=== PATIENT | male | born 1965 | race Caucasian/White ===

== ENCOUNTER 2016-07-09 12:07 | Inpatient (IN) | payer MEDICAID, OTHER ==
[~2016-07-09] VITALS: Ht 185.4 cm; Wt 88.5 kg
--- NOTE | 2016-07-09 12:07 | NUR ---
Patient LAURAA at this time and taken to lobby via wheelchair.
[2016-07-09 12:24] VITALS: BP 159/95
--- NOTE | 2016-07-09 12:30 | NUR ---
Patient to bed 05.
--- NOTE | 2016-07-09 12:39 | NUR ---
Dr. Jovel evaluating patient at bedside.
[2016-07-09] MEDS ORDERED: NACL 0.9% 1,000 ML IV ONE (12:50)
[2016-07-09] MEDS ORDERED: LORazepam 2 MG/ML VIAL IVP ONE (12:50)
[2016-07-09] MEDS ORDERED: MULTIVITAMIN-12 10 ML, THIAMINE 100 MG, MAGNESIUM SULFATE 50% 2,000 MG, FOLIC ACID 5 MG... IV ONE (12:50)
--- NOTE | 2016-07-09 13:39 | NUR ---
PATIENT PRESENTS TO ED WITH DRINKING FOR 6 DAYS STRAIGHT WITH SHAKING, SOB, HX HTN, ALCOHOL ABUSE; DENIES N/V/D; SKIN IS PINK/WARM/DRY; AAOX4 WITH EVEN AND STEADY GAIT; LUNGS CLEAR BL; HR EVEN AND REGULAR; PT DENIES ANY FEVER, CP, SOB, OR COUGH AT THIS TIME; PATIENT STATES PAIN OF 0/10 AT THIS TIME; VSS; PATIENT POSITIONED FOR COMFORT; HOB ELEVATED; BEDRAILS UP X2; BED DOWN. ER MD MADE AWARE OF PT STATUS.
[2016-07-09] MEDS ORDERED: DOCUSATE SODIUM 100 MG GELCAP PO PRN (14:50)
[2016-07-09] MEDS ORDERED: ACETAMINOPHEN 325 MG TAB PO PRN (14:50)
[2016-07-09] MEDS ORDERED: MORPHINE SULFATE 2 MG/ML SYR IVP PRN (14:50)
[2016-07-09] MEDS ORDERED: ONDANSETRON 4 MG/2 ML VIAL IVP PRN (14:50)
--- NOTE | 2016-07-09 14:54 | NUR ---
REPORT GIVEN TO BETY RUEDA
[2016-07-09] MEDS ORDERED: THIAMINE 200 MG/2 ML VIAL IM SCH (15:00)
--- NOTE | 2016-07-09 15:03 | NUR ---
Patient will be admitted to care of DR MESSINA. Admited to TELE. Will go to room 124B. Belongings list completed. Report to BETY RUEDA.
[2016-07-09] MEDS: LORazepam 1 MG TAB PO SCH ×4 (15:14→20:47)
[2016-07-09] MEDS: LORazepam 2 MG/ML VIAL IVP PRN ×3 (15:16→23:36)
--- NOTE | 2016-07-09 15:30 | NUR ---
PT ADMITTED FROM ER. REPORT RECEIVED FROM BETY QUIROGA. PT AAOX4. BROUGHT IN BY MIGUEL, AMBULATED TO BED. IV TO LEFT HAND INTACT AND PATENT. DENIES SOB. DENIES PAIN. C/O ANXIETY, WILL MEDICATE ORDERED. PT STATES HE WAS DRINKING X6 DAYS. DENIES SMOKING. HX HTN, PATIENT STATED HE TOOK MEDICATION THIS MORNING. SKIN INTACT. NO EDEMA. STRONG BILATERAL UPPER AND LOWER EXTREMITY PULSES. ON ROOM AIR. ORIENTED PT TO HOSPITAL ENVIRONMENT. ORIENTED PT TO CALL LIGHT. SAFETY MEASURES ENSURED. WILL CONTINUE TO MONITOR.
[2016-07-09 15:48] VITALS: BP 162/91
--- NOTE | 2016-07-09 16:24 | NUR ---
PT SLEEPING, AWAKES TO MODERATE TOUCH. NO S/S OF ACUTE DISTRESS.
[2016-07-09] MEDS: NACL 0.9% 1,000 ML IV SCH (18:29)
[2016-07-09] MEDS ORDERED: LOPRESSOR25 MG PO (18:40)
--- NOTE | 2016-07-09 18:40 | NUR ---
PT SEEN BY DR. GOODRICH AT BEDSIDE.
--- NOTE | 2016-07-09 18:55 | NUR ---
PT C/O SHAKINESS, ANXIETY. MEDICATED ORDERED.
--- NOTE | 2016-07-09 19:08 | NUR ---
SBAR REPORT GIVEN TO BETY DYE AT PT BEDSIDE. NO S/S OF ACUTE DISTRESS.
--- NOTE | 2016-07-09 19:15 | NUR ---
RECEIVED REPORT FROM DAY NURSEMARYBETH. PATIENT RESTING IN BED. NO RESPIRATORY DISTRESS, SOB, OR DISCOMFORT. INITIAL ASSESSMENT AND BODY CHECK DONE. PATIENT IS AOX4, SKIN IS INTACT, IV ACCESS TO LEFT HAND 20G, PATENT. DISCUSSED PLAN OF CARE, MEDICATION REGIMENT, AND PAIN MANAGEMENT WITH PATIENT. PATIENT COMPLAINING OF SHAKING/AGITATION AT THIS TIME, WILL ADMINISTERED MEDS PER MD ORDER. PATIENT VERBALIZED UNDERSTANDING. PLACED PATIENT ON SAFETY/FALL PRECAUTIONS. CALL LIGHT LEFT WITHIN REACH, WILL CONTINUE TO MONITOR.
[2016-07-09 20:00] VITALS: BP 145/81
--- NOTE | 2016-07-09 22:12 | NUR ---
PATIENT IN BED, SLEEPING. NO RESPIRATORY DISTRESS, SOB, OR DISCOMFORT. CALL LIGHT LEFT WITHIN REACH, WILL CONTINUE TO MONITOR.
[2016-07-10] VITALS: BP 153/97
--- NOTE | 2016-07-10 00:52 | NUR ---
PATIENT ASLEEP. NO RESPIRATORY DISTRESS, SOB, OR DISCOMFORT. CALL LIGHT LEFT WITHIN REACH, WILL CONTINUE TO MONITOR.
[2016-07-10] MEDS: LORazepam 2 MG/ML VIAL IVP PRN ×7 (02:24→18:30)
[2016-07-10] MEDS: NACL 0.9% 1,000 ML IV SCH ×3 (02:32→17:34)
--- NOTE | 2016-07-10 03:06 | NUR ---
PATIENT SLEEPING. NO RESPIRATORY DISTRESS, SOB, OR DISCOMFORT. CALL LIGHT LEFT WITHIN REACH, WILL CONTINUE TO MONITOR.
[2016-07-10 04:00] VITALS: BP 154/91
[2016-07-10] MEDS: LORazepam 1 MG TAB PO SCH ×3 (04:18→20:31)
--- NOTE | 2016-07-10 06:40 | NUR ---
PATIENT COMPLAINING OF FEELING SHAKY/AGITATED; REQUESTING MEDICATION. WILL MEDICATE PER MD ORDER.
--- NOTE | 2016-07-10 07:20 | NUR ---
RECEIVED PATIENT REPORT. PATIENT AWAKE, ALERT AND ORIENTED. PATIENT REPORTS FEELING SHAKY AT THIS TIME. WILL MEDICATE. PATIENT ON ROOM AIR. IV LINE NOTED TO THE LEFT HAND WITH IVF INFUSING WELL. PATIENT ON TELE MONITORING. BED LOWERED WITH CALL LIGHT WITHIN REACH. WILL CONTINUE TO MONITOR
--- NOTE | 2016-07-10 07:22 | NUR ---
REPORT GIVEN TO DAY NURSEHARDIK. PATIENT RESTING IN BED, STABLE. NO RESPIRATORY DISTRESS, SOB, OR DISCOMFORT. ALL NEEDS ATTENDED TO DURING SHIFT, CALL LIGHT LEFT WITHIN REACH.
[2016-07-10 08:00] VITALS: BP 155/91
[2016-07-10] MEDS: FOLIC ACID 1 MG TAB PO SCH (08:03)
[2016-07-10] MEDS: THIAMINE 100 MG TAB PO SCH (08:03)
--- NOTE | 2016-07-10 09:40 | NUR ---
ASSISTED PATIENT TO AMBULATE TO THE BATHROOM TO HAVE A BM. PATIENT ABLE TO AMBULATE BUT SHAKY. WILL MEDICATE
--- NOTE | 2016-07-10 10:04 | NUR ---
PATIENT HAS BEEN SCREENED AND CATEGORIZED MODERATE NUTRITION RISK. PATIENT WILL BE SEEN WITHIN 3-5 DAYS OF ADMISSION. 07/12/16-07/14/[address]
[2016-07-10 12:00] VITALS: BP 154/93
--- NOTE | 2016-07-10 12:24 | NUR ---
SS NOTE: I SPOKE WITH PT BEDSIDE. PT CONFIRMED THAT HE IS VISITING FROM [place]. HE ALSO STATED THAT HE HAS MEDICAID IN [place]. HE REPORTED THAT HE WENT TO [facility] TO GET SUPPORT FOR HIS SOBRIETY. I PROVIDED PT WITH ALCOHOL ABUSE RESOURCES NEAR [place], [place], A LIST OF LOW COST CLINICS AND A PRESCRIPTION DISCOUNT CARD.
--- NOTE | 2016-07-10 13:53 | NUR ---
PATIENT COMFORTABLY RESTING IN BED. NO S/S OF DISTRESS NOTED
--- NOTE | 2016-07-10 15:10 | NUR ---
PATIENT ASLEEP IN BED. NO S/S OF DISTRESS NOTED
--- NOTE | 2016-07-10 15:53 | NUR ---
PATIENT SEEN BY DR FERRERA
[2016-07-10 16:00] VITALS: BP 157/101
[2016-07-10] MEDS ORDERED: LACTULOSE 20 GM/30 ML UDC PO SCH (17:20)
--- NOTE | 2016-07-10 19:13 | NUR ---
ENDORSED CONTINUITY OF CARE TO THE NIGHT NURSE. PATIENT IN STABLE CONDITION
--- NOTE | 2016-07-10 19:25 | NUR ---
RECEIVED REPORT FROM DAY NURSEHARDIK. PATIENT RESTING IN BED, WATCHING TELEVISION, SIGNIFICANT OTHER AT BEDSIDE. NO RESPIRATORY DISTRESS, SOB, OR DISCOMFORT. INITIAL ASSESSMENT AND BODY CHECK DONE. PATIENT IS AOX4, SKIN IS INTACT, IV ACCESS TO LEFT HAND 20G, PATENT. DISCUSSED PLAN OF CARE, MEDICATION REGIMENT, AND PAIN MANAGEMENT WITH PATIENT. PATIENT VERBALIZED UNDERSTANDING. PLACED PATIENT ON SAFETY PRECAUTIONS. CALL LIGHT LEFT WITHIN REACH, WILL CONTINUE TO MONITOR.
[2016-07-10 20:00] VITALS: BP 158/88
[2016-07-10] MEDS: METOPROLOL 25 MG TAB PO SCH (20:32)
--- NOTE | 2016-07-10 22:20 | NUR ---
PATIENT IN BED, SLEEPING. NO RESPIRATORY DISTRESS, SOB, OR DISCOMFORT. CALL LIGHT LEFT WITHIN REACH, WILL CONTINUE TO MONITOR.
[2016-07-11] VITALS: BP 141/79
--- NOTE | 2016-07-11 00:52 | NUR ---
PATIENT ASLEEP. NO RESPIRATORY DISTRESS, SOB, OR DISCOMFORT. CALL LIGHT LEFT WITHIN REACH, WILL CONTINUE TO MONITOR.
[2016-07-11] MEDS: LORazepam 2 MG/ML VIAL IVP PRN (01:22)
--- NOTE | 2016-07-11 03:27 | NUR ---
PATIENT SLEEPING. NO RESPIRATORY DISTRESS, SOB, OR DISCOMFORT. CALL LIGHT LEFT WITHIN REACH, WILL CONTINUE TO MONITOR.
[2016-07-11] MEDS: NACL 0.9% 1,000 ML IV SCH (03:54)
[2016-07-11 04:00] VITALS: BP 148/91
[2016-07-11] MEDS: LORazepam 1 MG TAB PO SCH (05:46)
--- NOTE | 2016-07-11 06:07 | NUR ---
PATIENT IN BED, ASLEEP. NO RESPIRATORY DISTRESS, SOB, OR DISCOMFORT. CALL LIGHT LEFT WITHIN REACH, WILL CONTINUE TO MONITOR.
--- NOTE | 2016-07-11 07:00 | NUR ---
ASSUMED CONTINUITY OF CARE. NO SIGNS AND SYMPTOMS OF ACUTE DISTRESS NOTED. INITIAL ASSESSMENT DONE. CALM, QUIET, AND COOPERATIVE. KEEP COMFORTABLE ON BED. EXPLAINED DIAGNOSIS, PLAN OF CARE, PAIN MANAGEMENT TEACHING, USE OF CALL LIGHT/BED/TV/BATHROOM. VERBALIZED UNDERSTANDING. CALL LIGHT WITHIN REACH.
--- NOTE | 2016-07-11 07:00 | NUR ---
REPORT GIVEN TO DAY NURSEDOMINIK. PATIENT RESTING IN BED, STABLE. NO RESPIRATORY DISTRESS, SOB, OR DISCOMFORT. ALL NEEDS ATTENDED TO DURING SHIFT, CALL LIGHT LEFT WITHIN REACH.
[2016-07-11 08:01] VITALS: BP 148/99
[2016-07-11] MEDS: FOLIC ACID 1 MG TAB PO SCH (08:37)
[2016-07-11] MEDS: THIAMINE 100 MG TAB PO SCH (08:38)
[2016-07-11] MEDS: METOPROLOL 25 MG TAB PO SCH (08:38)
[2016-07-11] MEDS ORDERED: ATIVAN1 M1 PO (08:48)
--- NOTE | 2016-07-11 09:05 | NUR ---
EXPLAINED DIAGNOSIS, MD D/C ORDER, D/C INSTRUCTIONS AND TEACHING, MD FOLLOW-UP, MD D/C PRESCRIPTIONS LIST EDUCATION, DIET, PAIN MANAGEMENT TEACHING. VERBALIZED UNDERSTANDING.
--- NOTE | 2016-07-11 09:50 | NUR ---
D/C HOME VIA WHEELCHAIR WITH ASSISTANCE FROM [facility], ACCOMPANIED BY PT. GIRLFRIEND. AWAKE, ALERT, AND ORIENTED X4. SPEECH CLEAR. NO C/O PAIN. NO SOB, NOTED. IN STABLE CONDITION. INFORMED CHARGE NURSE ALIE MOORE.
== END 2016-07-11 09:50 | disposition home or self-care (01) | DRG 775 ==
LOC: MED 12:07 → MTU 14:32 → MIC 07-10 13:44 → MTU 07-10 17:29
PROVIDERS: ADMIT Family Medicine; ATTEND Family Medicine
DX: F10.239 Alcohol dependence with withdrawal, unspecified (principal); N17.0 Acute kidney failure with tubular necrosis; D69.6 Thrombocytopenia, unspecified; K72.90 Hepatic failure, unspecified without coma; E87.1 Hypo-osmolality and hyponatremia; F33.0 Major depressive disorder, recurrent, mild; R31.9 Hematuria, unspecified; G89.29 Other chronic pain; G90.9 Disorder of the autonomic nervous system, unspecified; I10 Essential (primary) hypertension; R80.9 Proteinuria, unspecified; K21.9 Gastro-esophageal reflux disease without esophagitis; M25.562 Pain in left knee; Y90.8 Blood alcohol level of 240 mg/100 ml or more; E78.5 Hyperlipidemia, unspecified; Z90.49 Acquired absence of other specified parts of digestive tract; Z90.89 Acquired absence of other organs; Z98.890 Other specified postprocedural states; Z88.8 Allergy status to other drugs, medicaments and biological substances; Z79.899 Other long term (current) drug therapy